=== PATIENT | female | born 1995 | race African-American/Black ===

== ENCOUNTER 2017-03-09 18:24 | Emergency (ER) | payer MEDICAID ==
[~2017-03-09] VITALS: Ht 180.3 cm; Wt 111.6 kg
[2017-03-09 19:18] VITALS: Ht 180.3 cm; Wt 111.6 kg
[2017-03-10 01:35] VITALS: BP 119/73
== END 2017-03-10 01:35 | disposition home or self-care (01) ==
LOC: ED 18:24
DX: N39.0 Urinary tract infection, site not specified (principal); Z91.013 Allergy to seafood
CPT/HCPCS: 87491; 87591